=== PATIENT | male | born 1980 | race Caucasian/White ===

== ENCOUNTER 2019-06-27 08:07 | Emergency (ER) | payer SELFPAY ==
[~2019-06-27] VITALS: Ht 182.9 cm; Wt 86.4 kg
[2019-06-27 08:19] VITALS: Ht 182.9 cm; Wt 86.4 kg
[2019-06-27] MEDS ORDERED: NAPROSYN500 MG PO (09:10)
[2019-06-27] MEDS ORDERED: ULTRAM50 MG PO (09:10)
[2019-06-27 09:36] VITALS: BP 127/73
== END 2019-06-27 09:37 | disposition home or self-care (01) ==
LOC: D.ER 08:07
DX: S49.91XA Unspecified injury of right shoulder and upper arm, initial encounter (principal); W17.89XA Other fall from one level to another, initial encounter; Y93.9 Activity, unspecified; Y92.9 Unspecified place or not applicable